=== PATIENT | male | born 1975 | race Caucasian/White ===

== ENCOUNTER 2016-09-02 09:28 | Emergency (ER) | payer OTHER ==
[2016-09-02 09:56] VITALS: O2SAT 96
--- NOTE | 2016-09-02 10:34 | UCPHY ---
H & P Patient Type: New Smoking Status: Never smoked Time Seen by Provider: 09/02/16 10:26 HPI/ROS: HPI Cyst near buttocks. 40-year-old male by private vehicle. This patient complains of a painful swollen area lower left buttock several cm below his anus. He reports that it has been swelling and increasing in pain over the last 2-3 days. ROS: Constitutional: No fever, no chills. No weakness. Musculoskeletal: No back pain. As above per Skin: No rashes. Neurological: No focal weakness or altered sensation. Past medical history: Denies any other past medical history. Social history: Here by himself. Physical Exam: General Appearance: Alert, no distress. This patient is responding to questions appropriately and in full sentences. This patient appears well- hydrated and well-nourished. Eyes: Pupils equal and round no pallor or injection. No lid edema, erythema or injection. Respiratory: There are no retractions, lungs are clear to auscultation with good air movement bilaterally. Neurological: Motor sensory function is grossly intact. Cranial nerves are normal. Gait is normal. Skin: Warm and dry, he has a 2-3 cm in diameter area of erythema and fluctuance left lower buttock about 2-3 cm inferior to the anus. Musculoskeletal: Neck is supple and nontender. Extremities are symmetrical. All joints range without pain or impingement. Psychiatric: No agitation. No depression. Database: EKG: Imaging: Procedures: Emergency department course: Patient declined pain medication initially. Please see incision and drainage note by nurse practitioner Sherita Palacios. 11:50 a.m., patient re-evaluated. Resting comfortably at this time. He was given Bactrim DS and Augmentin at the urgent care. He has received 600 mg of ibuprofen. He does feel comfortable going home. Plan will be to discharge him with a prescription for Concord, continued ibuprofen, Bactrim and Augmentin for the next 5 days and follow up with his primary care physician in 2-3 days for recheck. He endorses this plan. Return to Urgent Care/emergency department precautions were discussed with him. All of his questions were answered. He was discharged in good condition. Differential Diagnosis: The differential diagnosis on this patient includes but is not limited to perianal abscess, sebaceous cyst. This represents a partial list of diagnoses considered. These considerations are based on history, physical exam, past history, reassessment and diagnostic testing. (Melissa Bernabe) Constitutional: Initial Vital Signs Temperature (C) 36.7 C 09/02/16 09:54 Heart Rate 58 L 09/02/16 09:54 Respiratory Rate 15 09/02/16 09:54 Blood Pressure 127/70 H 09/02/16 09:54 O2 Sat (%) 96 09/02/16 09:54 O2 Delivery Mode Room Air Allergies/Adverse Reactions: No Known Allergies Allergy (Verified 01/07/16 07:50) Home Medications: Medication Instructions Recorded [place] 11/15/13 Amoxicillin/Clavulanate Pot 875 mg PO BID 5 Days 09/02/16 [Augmentin 875 mg tab] Hydrocodone/APAP 5/325 [Concord 1 - 2 tab PO Q4-6PRN PRN #14 tab 09/02/16 5/325 (*)] Sulfamethox/Tmp 800/160 mg 1 tab PO BID@1000,2200 #10 tab 09/02/16 [Bactrim Ds] MDM/Departure - MDM Procedures: Procedure: Abscess drainage. The patient's abscess was located on the left upper thigh just adjacent to the perineum. I obtained verbal consent from the patient to drain the abscess who was informed about the possibility of bleeding and pain. After verbal consent was obtained, and risks and benefits explained, area was anesthetized using 0.5 % Marcaine with epinephrine. Adequate anesthesia achieved. The abscess was incised with # 11 scalpel and a moderate amount of purulent drainage was expressed. I irrigated the wound with 300 cc of sterile saline using an irrijet. The patient tolerated the procedure well. Afterward, copious amounts of bacitracin and dressing applied. The procedure was performed by myself. ( Sherita Palacios) Medications Given: Discontinued Medications Acetaminophen/Hydrocodone Bitart (Concord 5/325mg Prepack#6) 1 btl TAKEHOME EDNOW ONE Stop: 09/02/16 11:51 Last Admin: 09/02/16 12:06 Dose: 1 btl Amoxicillin/Clavulanate Potassium (Augmentin 875mg) 875 mg PO EDNOW ONE PRN Reason: Protocol Stop: 09/02/16 11:49 Last Admin: 09/02/16 12:05 Dose: 875 mg Ibuprofen (Motrin) 800 mg PO EDNOW ONE Stop: 09/02/16 11:51 Last Admin: 09/02/16 12:06 Dose: 800 mg Trimethoprim/Sulfamethoxazole (Bactrim Ds) 1 ea PO EDNOW ONE PRN Reason: Protocol Stop: 09/02/16 11:49 Last Admin: 09/02/16 12:07 Dose: 1 ea - Depart Disposition: Home, Routine, Self-Care Clinical Impression: Abscess, perianal Condition: Good Instructions: Hydrocodone/Acetaminophen (By mouth), Rectal Abscess (ED) Additional Instructions: Read and follow provided instructions. Follow-up with your primary care physician in 1-2 days for re-evaluation without fail. Take medication as prescribed. Ibuprofen dosin mg every 6 hours with meals for the next 3 days only. Concord/Percocet dosin-2 every 4-6 hours for [address] Do not drive on this medication. Return to the emergency department for worsening pain, fever, bleeding or other serious concerns. Prescriptions: Amoxicillin/Clavulanate Pot [Augmentin 875 mg tab] 875 mg PO BID 5 Days Sulfamethox/Tmp 800/160 mg [Bactrim Ds] 1 tab PO BID@1000,2200 #10 tab Hydrocodone/APAP 5/325 [Concord 5/325 (*)] 1 - 2 tab PO Q4-6PRN PRN #14 tab PRN Reason: Pain, Moderate Referrals: Lewis Faustin MD [Primary Care Provider] - As per Instructions - PQRS PQRS Measurement: Not applicable. (Melissa Bernabe)
[2016-09-02] MEDS ORDERED: AMOXICILLIN/CLAVULANATE POT 875/125 MG TAB PO ONE (11:48)
[2016-09-02] MEDS ORDERED: SULFAMETHOX/TMP 800/160 MG 1 TAB PO ONE (11:48)
[2016-09-02] MEDS ORDERED: IBUPROFEN 800 MG TAB PO ONE (11:50)
[2016-09-02] MEDS ORDERED: HYDROCOD/APAP 5/325 PREPACK#6 BTL TAKEHOME ONE (11:50)
[2016-09-02] MEDS ORDERED: IBUPROFEN 200 MG TAB PO ONE (11:59)
[2016-09-02 12:08] VITALS: BP 122/66; PULSE 62; RESP 16; TEMP 97.9
== END 2016-09-02 12:07 | disposition home or self-care (01) ==
LOC: CED 09:28
PROC: 0J9B0ZZ Drainage of Perineum Subcutaneous Tissue and Fascia, Open Approach (ICD-10-PCS; principal; 2016-09-02)
DX: K61.0 Anal abscess (principal)
CPT/HCPCS: G0463-PO